=== PATIENT | female | born 1985 | race Caucasian/White ===

== ENCOUNTER 2021-01-29 11:11 | Emergency (ER) | payer OTHER ==
[~2021-01-29 11:11] MED LIST: LODINE CAP 300300 MG PO; PREDNISONE50 MG PO; ROBITUSSIN100 MG/51 PO; VENTOLIN HFA 66.7 GM INH; ZYRTEC10 M3 PO
[2021-01-29] MEDS ORDERED: Voltaren Gel 1 % TOP (14:18)
[2021-01-29] MEDS ORDERED: MEDROL DOSEPAK 24 MG PO (14:18)
[2021-01-29] MEDS ORDERED: NORFLEX 100 MG100 MG PO (14:18)
== END 2021-01-29 14:38 | disposition home or self-care (01) ==
LOC: ER1 11:11
DX: M54.42 Lumbago with sciatica, left side (principal); F17.200 Nicotine dependence, unspecified, uncomplicated
CPT/HCPCS: 72131; 73502; 96372; 99284; J1100; J1885

== ENCOUNTER 2021-02-06 21:01 | Emergency (ER) | payer OTHER ==
[~2021-02-06 21:01] MED LIST changes: +MEDROL DOSEPAK 24 MG PO; +NORFLEX 100 MG100 MG PO; +Voltaren Gel 1 % TOP
[2021-02-06] MEDS ORDERED: ENDOCET 5-3251 EACH PO ×2 (21:20→21:21)
== END 2021-02-06 22:33 | disposition home or self-care (01) ==
LOC: ER1 21:01
DX: M51.16 Intervertebral disc disorders with radiculopathy, lumbar region (principal)
CPT/HCPCS: 96374; 96375; 99283; J1100; J1170; J1885; J2405

== ENCOUNTER 2021-02-10 21:13 | Emergency (ER) | payer OTHER ==
[~2021-02-10 21:13] MED LIST changes: +ENDOCET 5-3251 EACH PO
[2021-02-10 22:01] LABS: HEMOGLOBIN 13.9 gm/dl (12.3-15.3); RED BLOOD COUNT 4.37 M/UL (4.00-5.10); WHITE BLOOD COUNT 10.7 K/UL (4.5-11.0)
[2021-02-10 22:32] LABS: BUN/CREATININE RATIO 19 (0-10)
== END 2021-02-11 01:17 | disposition home or self-care (01) ==
LOC: ER1 21:13
PROVIDERS: Physician Assistant
DX: M51.36 Other intervertebral disc degeneration, lumbar region (principal); M48.061 Spinal stenosis, lumbar region without neurogenic claudication; M54.42 Lumbago with sciatica, left side; G89.29 Other chronic pain
CPT/HCPCS: 80053; 81001; 82550; 82553; 83874; 84484; 85025; 85379; 93005; 96374; 99283; J1885

== ENCOUNTER → 2021-02-17 | Outpatient (CLI) | payer OTHER | LOC: KOH-I 08:42 | DX: M47.26 Other spondylosis with radiculopathy, lumbar region (principal) | CPT/HCPCS: 72148 ==

== ENCOUNTER → 2021-03-19 | Outpatient (CLI) | payer OTHER | LOC: KOH-I 08:14 | DX: M50.022 Cervical disc disorder at C5-C6 level with myelopathy (principal) | CPT/HCPCS: 72141 ==

== ENCOUNTER 2021-07-24 17:38 | Emergency (ER) | payer SELFPAY | END 2021-07-24 19:38 | disposition left against medical advice (07) | LOC: ER1 17:38 | DX: Z53.21 Procedure and treatment not carried out due to patient leaving prior to being seen by health care provider (principal) ==

== ENCOUNTER → 2021-08-26 | Outpatient (CLI) | payer OTHER | LOC: MRI 09:00 | DX: G37.9 Demyelinating disease of central nervous system, unspecified (principal); R20.0 Anesthesia of skin; R20.2 Paresthesia of skin; G56.03 Carpal tunnel syndrome, bilateral upper limbs; M79.604 Pain in right leg; M79.605 Pain in left leg; M54.2 Cervicalgia; M54.9 Dorsalgia, unspecified; G89.29 Other chronic pain | CPT/HCPCS: 70553; A9577 ==

== ENCOUNTER → 2021-12-17 | Day surgery (SDC) | payer OTHER ==
[~2021-12-17] MED LIST changes: +BACLOFEN10 MG PO; +GABAPENTIN300 MG PO; +HEMP OIL PO; +HYDROCODON-ACE1 EAC4 PO; +HYDROXYZINE HCL10 MG PO; +MELOXICAM15 MG PO; +QELBREE200 MG PO; +TRAZODONE HCL150 MG PO; +VRAYLAR1.5 MG PO
== END | disposition home or self-care (01) ==
LOC: OR 05:36
DX: M79.601 Pain in right arm (principal); M79.602 Pain in left arm; M79.604 Pain in right leg; M79.605 Pain in left leg; G37.9 Demyelinating disease of central nervous system, unspecified; R20.0 Anesthesia of skin; R20.2 Paresthesia of skin; E78.5 Hyperlipidemia, unspecified; F17.210 Nicotine dependence, cigarettes, uncomplicated; Z79.1 Long term (current) use of non-steroidal anti-inflammatories (NSAID); Z79.899 Other long term (current) drug therapy
CPT/HCPCS: J0690; J1100; J1885; J2001; J2250; J2405; J2704; J3010